=== PATIENT | female | born 1975 | race Caucasian/White ===

== ENCOUNTER 2018-02-28 21:05 | Emergency (ER) | payer BC ==
[~2018-02-28] VITALS: Ht 170.2 cm; Wt 84.4 kg
[2018-02-28 21:13] VITALS: BP_SYST 146
[2018-02-28] MEDS ORDERED: ONDANSETRON 4 MG ODT TAB PO ONE (23:30)
[2018-02-28] MEDS ORDERED: MORPHINE 4 MG/ML INJ. SYRINGE IM ONE (23:30)
[2018-03-01 00:06] VITALS: BP_SYST 140
== END 2018-03-01 00:06 | disposition home or self-care (01) ==
LOC: SED 21:05
DX: S42.002A Fracture of unspecified part of left clavicle, initial encounter for closed fracture (principal); R03.0 Elevated blood-pressure reading, without diagnosis of hypertension; V29.9XXA Motorcycle rider (driver) (passenger) injured in unspecified traffic accident, initial encounter; Y93.89 Activity, other specified; Y92.410 Unspecified street and highway as the place of occurrence of the external cause; Y99.8 Other external cause status
CPT/HCPCS: 29105; 73030; 96372; 99283; J2270; Q0162

== ENCOUNTER 2018-03-17 09:58 | Day surgery (SDC) | payer BC ==
[2018-03-16 13:31] LABS: BASOPHILS % (AUTO) 0.3 % (0.0-2.0); EOSINOPHILS # (AUTO) 0.1 K/uL (0.0-0.4); EOSINOPHILS % (AUTO) 0.9 % (0.0-4.0); HEMATOCRIT 45.6 % (36-48); LYMPHOCYTES # (AUTO) 2.2 K/uL (1.0-5.5); LYMPHOCYTES % (AUTO) 29.7 % (20.5-51.5); MEAN CORPUSCULAR HEMOGLOBIN 30 pg (27-31); MEAN CORPUSCULAR HGB CONC 33 % (32-36); MEAN CORPUSCULAR VOLUME 92 fL (79.0-98.0); MONOCYTES # (AUTO) 0.6 K/uL (0.0-1.0); MONOCYTES % (AUTO) 8.5 % (1.7-9.3); NEUTROPHILS # (AUTO) 4.6 K/uL (1.8-7.7); NEUTROPHILS % (AUTO) 60.6 % (40.0-70.0); PLATELET COUNT (AUTO) 330 K/uL (130-430); RED BLOOD CELL COUNT(AUTO) 4.93 MIL/uL (4.2-6.2); RED CELL DISTRIBUTION WIDTH 11.9 % (9.0-15.0); WHITE BLOOD COUNT (AUTO) 7.5 K/uL (4.8-10.8)
[2018-03-16 13:37] LABS: BILIRUBIN,URINE NEGATIVE (NEGATIVE); BLOOD, URINE NEGATIVE (NEGATIVE); CLARITY/URINE CLEAR (CLEAR); COLOR,URINE YELLOW (YELLOW); GLUCOSE,URINE NEGATIVE (NEGATIVE); KETONES,URINE NEGATIVE (NEGATIVE); LEUKOCYTE ESTERASE ,URINE NEGATIVE (NEGATIVE); NITRITE, URINE NEGATIVE (NEGATIVE); PROTEIN URINE NEGATIVE (NEGATIVE); UROBILINOGEN,URINE 0.2 (0.2-1.0)
[2018-03-16 13:50] LABS: HCG,QUAL RESULT NEGATIVE (NEGATIVE)
[~2018-03-17] VITALS: Ht 172.7 cm; Wt 84.4 kg
[2018-03-17] MEDS ORDERED: POLYMYXIN 500,000/BACIT.10,000 UNITS in NS IRR 1 L IR ONE (12:08)
[2018-03-17] MEDS ORDERED: LR 1,000 ML IV SCH (12:34)
[2018-03-17] MEDS ORDERED: METOCLOPRAMIDE HCL 10 MG/2 ML VIAL IVP PRN (12:45)
[2018-03-17] MEDS ORDERED: MORPHINE 4 MG/ML INJ. SYRINGE IVP PRN ×3 (12:45)
[2018-03-17] MEDS ORDERED: GLYCOPYRROLATE 0.2 MG/ML VIAL ONE (13:05)
[2018-03-17] MEDS ORDERED: NEOSTIGMINE METHYLSULFATE 1 MG/ML, 10 ML VIAL ONE (13:05)
[2018-03-17] MEDS ORDERED: ROCURONIUM BROMIDE 10 MG/ML (ZEMURON) ONE (13:05)
[2018-03-17] MEDS ORDERED: CEFAZOLIN 2 GM IVPB PREMIX 50 ML IV ONE (13:05)
[2018-03-17] MEDS ORDERED: fentaNYL CITRATE 250 MCG/5 ML AMP ONE (13:05)
[2018-03-17] MEDS ORDERED: SEVOFLURANE 15 MIN GAS INH ONE (13:05)
[2018-03-17] MEDS ORDERED: PROPOFOL 200MG/ 20ML VIAL (DIPRIVAN) IV ONE (13:05)
[2018-03-17] MEDS ORDERED: WATER FOR IRRIGATION,STERILE 1,000 ML IRRIG.SOLN IR ONE (13:05)
[2018-03-17] MEDS ORDERED: ONDANSETRON HCL 4 MG/2 ML VIAL ONE (13:05)
[2018-03-17] MEDS ORDERED: BUPIVACAINE /EPINEPHRINE/PF 0.25% 30 ML VIAL INJ ONE (13:05)
[2018-03-17] MEDS ORDERED: MIDAZOLAM HCL 5 MG/ML VIAL (VERSED) IV ONE (13:05)
[2018-03-17] MEDS ORDERED: PHENYLEPHRINE HCL 10 MG/ML VIAL (NEOSYNEPHRINE) ONE (13:05)
[2018-03-17] MEDS ORDERED: LR 1,000 ML IV.SOLN IV ONE (13:05)
[2018-03-17] MEDS: MORPHINE 4 MG/ML INJ. SYRINGE ONE ×2 (13:15→13:25)
[2018-03-17] MEDS ORDERED: HYDROmorphone 2 MG/ML VIAL ONE (13:30)
[2018-03-17] MEDS ORDERED: HYDROmorphone 2 MG/ML VIAL IVP ONE (13:30)
[2018-03-17 14:56] VITALS: BP_SYST 94
[2018-03-17] MEDS ORDERED: METOCLOPRAMIDE HCL 10 MG/2 ML VIAL ONE (16:54)
== END 2018-03-17 18:15 | disposition home or self-care (01) ==
LOC: SMU 09:58 → SDS 09:58 → SMU 10:00 → SDS 18:15
PROVIDERS: ATTEND Orthopaedic Surgery
DX: S43.102A Unspecified dislocation of left acromioclavicular joint, initial encounter (principal); V29.9XXA Motorcycle rider (driver) (passenger) injured in unspecified traffic accident, initial encounter; Y93.9 Activity, unspecified; Y92.89 Other specified places as the place of occurrence of the external cause; Y99.9 Unspecified external cause status; E66.9 Obesity, unspecified; G43.909 Migraine, unspecified, not intractable, without status migrainosus; K21.9 Gastro-esophageal reflux disease without esophagitis
CPT/HCPCS: 23550; 36415; 76000; 81003; 84703; 85025; C1713; J0690; J1170; J2250; J2270; J2370; J2405; J2704; J2710; J2765; J3010; J3490 ×2; J7120; J7050

== ENCOUNTER 2018-05-11 10:07 | Day surgery (SDC) | payer BC ==
[2018-05-10 12:41] LABS: BASOPHILS % (AUTO) 0.5 % (0.0-2.0); EOSINOPHILS % (AUTO) 0.7 % (0.0-4.0); HEMATOCRIT 43.8 % (36-48); HEMOGLOBIN 14.3 g/dL (12.0-16.0); LYMPHOCYTES # (AUTO) 1.6 K/uL (1.0-5.5); LYMPHOCYTES % (AUTO) 24.1 % (20.5-51.5); MEAN CORPUSCULAR HEMOGLOBIN 30 pg (27-31); MEAN CORPUSCULAR HGB CONC 33 % (32-36); MEAN CORPUSCULAR VOLUME 91 fL (79.0-98.0); MONOCYTES # (AUTO) 0.5 K/uL (0.0-1.0); MONOCYTES % (AUTO) 7.2 % (1.7-9.3); NEUTROPHILS # (AUTO) 4.7 K/uL (1.8-7.7); NEUTROPHILS % (AUTO) 67.5 % (40.0-70.0); PLATELET COUNT (AUTO) 280 K/uL (130-430); RED BLOOD CELL COUNT(AUTO) 4.83 MIL/uL (4.2-6.2); RED CELL DISTRIBUTION WIDTH 12.1 % (9.0-15.0); WHITE BLOOD COUNT (AUTO) 6.8 K/uL (4.8-10.8)
[2018-05-10 12:48] LABS: BILIRUBIN,URINE NEGATIVE (NEGATIVE); BLOOD, URINE NEGATIVE (NEGATIVE); CLARITY/URINE SL HAZY (CLEAR); COLOR,URINE YELLOW (YELLOW); GLUCOSE,URINE NEGATIVE (NEGATIVE); KETONES,URINE NEGATIVE (NEGATIVE); LEUKOCYTE ESTERASE ,URINE NEGATIVE (NEGATIVE); NITRITE, URINE NEGATIVE (NEGATIVE); PROTEIN URINE NEGATIVE (NEGATIVE); UROBILINOGEN,URINE 0.2 (0.2-1.0)
[~2018-05-11] VITALS: Ht 170.2 cm; Wt 83.9 kg
[2018-05-11] MEDS ORDERED: GLYCOPYRROLATE 0.2 MG/ML VIAL IJ ONE (11:40)
[2018-05-11] MEDS ORDERED: BUPIVACAINE /PF 0.25% 30 ML VIAL INJ ONE (11:40)
[2018-05-11] MEDS ORDERED: LR 1,000 ML IV.SOLN IV ONE (11:40)
[2018-05-11] MEDS ORDERED: MIDAZOLAM HCL 5 MG/5 ML VIAL IVP ONE (11:40)
[2018-05-11] MEDS ORDERED: PROPOFOL 200MG/ 20ML VIAL (DIPRIVAN) IV ONE (11:40)
[2018-05-11] MEDS ORDERED: SEVOFLURANE 15 MIN GAS INH ONE (11:40)
[2018-05-11] MEDS ORDERED: NEOSTIGMINE METHYLSULFATE 1 MG/ML, 10 ML VIAL IVP ONE (11:40)
[2018-05-11] MEDS ORDERED: NS IRRIG SOLN 1000 ML IR ONE (11:40)
[2018-05-11] MEDS ORDERED: POLYMYXIN 500,000/BACIT.10,000 UNITS in NS IRR 1 L IR ONE (11:43)
[2018-05-11] MEDS ORDERED: LR 1,000 ML IV SCH (12:07)
[2018-05-11] MEDS ORDERED: MORPHINE 4 MG/ML INJ. SYRINGE IVP PRN ×3 (12:15)
[2018-05-11] MEDS ORDERED: METOCLOPRAMIDE HCL 10 MG/2 ML VIAL IVP PRN (12:15)
[2018-05-11] MEDS ORDERED: MORPHINE 4 MG/ML INJ. SYRINGE ONE (13:09)
[2018-05-11 15:19] VITALS: BP_SYST 114
== END 2018-05-11 15:05 | disposition home or self-care (01) ==
LOC: SMU 10:07 → SDS 10:07
PROVIDERS: ATTEND Orthopaedic Surgery
DX: T84.098A Other mechanical complication of other internal joint prosthesis, initial encounter (principal); E66.3 Overweight
CPT/HCPCS: 20680; 36415; 81003; 84703; 85025; 88300; J2250; J2270; J2704; J2710; J3490 ×2; J7120